=== PATIENT | male | born 1980 | race African-American/Black ===

== ENCOUNTER 2017-08-30 15:26 | Inpatient (IN) | payer MEDICARE, MEDICAID ==
[2017-08-30] MEDS ORDERED: Lorazepam 2 MG/ML VIAL ONE ×2 (15:28→18:01)
[2017-08-30 15:52] LABS: #Basophils 0.1 thou/uL (0.0-0.2); #Eosinphils 0.1 thou/uL (0.0-0.7); #Lymphocytes 2.2 thou/uL (1.20-3.40); #Monocytes 0.8 thou/uL (0.11-0.59); #Neutrophils 3.3 thou/uL (1.40-6.50); %Eosinophils 0.9 % (0.0-10.0); %Lymphocytes 34.2 % (21.0-51.0); %Monocytes 12.2 % (0.0-10.0); %Neutrophils 51.7 % (42.0-75.0); Hemoglobin 14.2 g/dL (14.0-18.0); Mean Corpuscular HGB CONC 35.6 g/dL (32.0-36.0); Mean Corpuscular Hemoglobin 32.3 pg (27.0-31.0); Mean Corpuscular Volume 90.9 fL (78.0-98.0); Mean Platelet Volume 6.6 fL (7.4-10.4); Platelet Count 329 thou/uL (130-400); RBC Distribution Width 11.7 % (11.5-14.5); Red Blood Cell (RBC) Count 4.39 mill/uL (4.70-6.10); White Blood Cell (WBC) Count 6.3 thou/uL (4.8-10.8)
[2017-08-30 16:09] LABS: Bilirubin Small (Negative); Blood, Urine Trace (Negative); Clarity CLEAR (Clear); Glucose, Urine (Dipstick) Negative (Negative); Leukocyte Negative (Negative); Nitrite Negative (Negative); Protein, Urine (Dipstick) 30 mg/dL (Neg-Trace); Specific Gravity, Urine 1.034 (1.002-1.036)
[2017-08-30 16:12] LABS: ALT (SGPT) 80 U/L (8-55); AST (SGOT) 109 U/L (5-34); Albumin 3.9 g/dL (3.5-5.0); Alcohol Less than 10 mg/dL (Less than 10); Alkaline Phosphatase 61 U/L (40-150); Anion Gap 15 mmol/L (10-20); BUN (Urea Nitrogen) 22 mg/dL (8.9-20.6); Bilirubin, Total 1.6 mg/dL (0.2-1.2); CK (CPK) 3763 U/L (30-200); Calc. Creatinine Clearance 0 mL/min (70-130); Calcium 9.2 mg/dL (7.8-10.44); Carbon Dioxide 23 mmol/L (22-29); Chloride 108 mmol/L (98-107); Estimated GFR-MDRD 82; Globulin 2.4 g/dL (2.4-3.5); Glucose 75 mg/dL (70-105); Potassium 4.3 mmol/L (3.5-5.1); Protein, Total 6.3 g/dL (6.0-8.3); Sodium 142 mmol/L (136-145)
[2017-08-30 16:16] LABS: Amphetamine Not Detected (NotDetected); Barbiturates Screen Not Detected (NotDetected); Benzodiazepine Screen Not Detected (NotDetected); Cocaine Metabolite Screen Not Detected (NotDetected); Medtox Control Line Valid? VALID (VALID); Medtox Reader # READER 1; Methadone Not Detected (NotDetected); Methamphetamine Not Detected (NotDetected); Opiate Screen Not Detected (NotDetected); Oxycodone Screen Not Detected (NotDetected); Phencyclidine (PCP) Not Detected (NotDetected); THC/Cannabinoid Screen Not Detected (NotDetected); Tricyclic Screen Not Detected (NotDetected)
[2017-08-30 16:17] LABS: Bacteria/HPF None Seen HPF (None Seen); Pathc Cast-AUWi Flag 1.16 (0-2.49); WBC/HPF 0-3 HPF (0-3)
[2017-08-30 16:18] LABS: Acetaminophen Less than 6.0 mcg/mL (10.0-30.0); Alcohol Less than 10 mg/dL (Less than 10); Lipase 26 U/L (8-78); Salicylate Less than 8.0 mg/dL (15.0-30.0); Troponin I Less than 0.010 ng/mL (< 0.028)
--- NOTE | 2017-08-30 16:18 | RAD ---
1 VIEW CHEST: Date: 08/30/17 HISTORY: Found [place] train tracks. Told EMS he was bit by a snake and a possum. Possible K2 user. Mental health i ssues. COMPARISON: None. FINDINGS: Portable 1 view chest obtained. Normal cardiac silhouette. Lungs and pleural spaces are clear. No con solidation or masses. No pneumothorax on this presumed supine projection. No osseous abnormalities. IMPRESSION: No acute cardiopulmonary process. POS: [facility]
[2017-08-30 16:24] LABS: CKMB 40.5 ng/mL (0-6.6)
[2017-08-30 16:27] LABS: Hyaline Casts/LPF 0-3 HYALINE CAST LPF (0-3 Hyaline)
[2017-08-30 16:28] LABS: Transitional Epithelial 0-3 HPF (0-3)
--- NOTE | 2017-08-30 16:47 | RAD ---
ONE VIEW CHEST: HISTORY: Status post intubation. COMPARISON: 08/30/2017 FINDINGS: Portable supine chest radiograph demonstrates interval placement of an endotracheal tube just beyond the level of the clavicles. There is a nasogastric tube with limited evaluation of the terminus of t he nasogastric tube. Dedicated abdomen radiograph is recommended. Normal cardiac silhouette. Pulmo nary vessels and hilum are normal. No pneumothorax on this supine projection. IMPRESSION: 1. Endotracheal tube as above. 2. Incomplete evaluation of nasogastric tube. The nasogastric tube is identified to the level of th e distal thoracic esophagus. A single view abdomen radiograph is recommended to better interrogate t he terminus of the nasogastric tube. POS: [facility]
--- NOTE | 2017-08-30 17:10 | CT ---
HEAD CT WITHOUT CONTRAST: HISTORY: Altered mental status. Possible drug abuse. COMPARISON: None. TECHNIQUE: A noncontrast head CT is performed from the skull base to the skull vertex. FINDINGS: No parenchymal hemorrhage. No extraaxial hematoma. No midline shift. The basilar cisterns are vanessa nt. Brain volume is age appropriate. Cortical lawson white matter differential is preserved. The ventricles and sulci are patent and symmetric. The calvarium is intact. Adequate aeration of the sinuses and mastoid air cells. IMPRESSION: No acute intracranial process. POS: [facility]
[2017-08-30 17:11] LABS: Base Excess (BEa) -4.2 mEq/L (-2.0 to +3.0); Hematocrit-ABG 37.1 % (42.0-52.0); Hemoglobin (Hb) 13.2 g/dL (14.0-18.0); O2 Tension (PaO2) 82.1 mmHg (80.0-100.0); pH, Arterial 7.35 (7.35-7.45)
[2017-08-30 17:12] LABS: Analyzer IN Cardio ER; Calcium, Ionized 1.2 mmol/L (1.12-1.30)
[2017-08-30 17:13] LABS: Puncture Site LR
[2017-08-30] MEDS ORDERED: PROPOFOL 20 ML ONE (17:22)
[2017-08-30] MEDS ORDERED: Propofol 500 MG/50 ML VIAL ONE (17:58)
[2017-08-30] MEDS ORDERED: Fentanyl BOLUS 250 ML IVPB PRN ×2 (18:56→19:17)
[2017-08-30] MEDS ORDERED: DISCONTINUE PREVIOUS NARCOTIC PAIN MEDICATIONS AND BENZODIAZEPINES FS SCH (18:56)
[2017-08-30] MEDS ORDERED: Lorazepam 2 MG/ML VIAL SLOW IVP PRN ×2 (18:56→19:17)
[2017-08-30] MEDS ORDERED: Propofol BOLUS 1,000 MG/100 ML VIAL IV PRN ×2 (18:56→19:17)
[2017-08-30] MEDS ORDERED: Ondansetron HCl/PF 4 MG/2 ML Vial IVP PRN ×2 (18:57→19:12)
[2017-08-30] MEDS ORDERED: Ondansetron ODT 4 MG TAB SL PRN (18:57)
[2017-08-30] MEDS ORDERED: Sodium Chloride 0.9% 1,000 ML IV SCH (19:00)
[2017-08-30] MEDS ORDERED: Ventilator Sedation Protocol 1 EACH FS SCH (19:12)
[2017-08-30] MEDS ORDERED: CCU Electrolyte Replacement 1 EACH IVPB SCH (19:12)
[2017-08-30] MEDS ORDERED: Potassium Chloride 40 MEQ in Sodium Chloride 0.9% 250 ML 250 ML IVPB PRN (19:17)
[2017-08-30] MEDS ORDERED: Potassium Phosphate 15 MMOL in Sodium Chloride 0.9% 250 ML 250 ML IV PRN (19:17)
[2017-08-30] MEDS ORDERED: Potassium Chloride 40 MEQ in Premix Bag 1 BAG IVPB PRN (19:17)
[2017-08-30] MEDS ORDERED: Potassium Chloride 20 MEQ TAB PO PRN (19:17)
[2017-08-30] MEDS ORDERED: Potassium Phosphate 9 MMOL in Sodium Chloride 0.9% 100 ML IVPB PRN (19:17)
[2017-08-30] MEDS ORDERED: Magnesium Oxide 400 MG TAB PO PRN ×2 (19:17)
[2017-08-30] MEDS ORDERED: Magnesium 2 GM/NS 0.9% 100 ML 2 GM in Premix Bag 1 BAG IVPB PRN (19:17)
[2017-08-30] MEDS ORDERED: CCU ELECTROLYTE REPLACEMENT PROTOCOL FS PRN (19:17)
[2017-08-30] MEDS ORDERED: Potassium Phosphate 12 MMOL in Sodium Chloride 0.9% 250 ML 250 ML IV PRN (19:17)
--- NOTE | 2017-08-30 19:42 | PDOC.EVN ---
Attending Addendum - Attending Addendum Date/Time: 08/30/17 2539 I personally evaluated the patient and discussed the management with Dr. Alonzo/ Joshua at 1726 08/30/2017 in the emergency room. I agree with the History, Examination, Assessment and Plan documented in resident HX and PE with any addition or exceptions noted below. 37 yo male with history mental illness found down on of side road brought to ER with AMS incoherent speech with acute psychotic episode with agitation unresponsive to Ketamine x 2 Patient was intubated for patients safety. Patient with Rhabdomylosis, exposure unknown length of time concern abuse of drugs not detected in drug screen i.e. bath salts.. Patient on ventilator with be observed in CCU continue vigorous hydration follow CK and RFT admit CK 3765. Will need MHMR evaluation when medically cleared. CT of head noted.
[2017-08-30] MEDS: Sodium Chloride 0.9% 1,000 ML IV SCH (19:56)
[2017-08-30] MEDS: Propofol 1,000 MG/100 ML VIAL IV PRN (19:57)
--- NOTE | 2017-08-30 20:47 | PDOC.FPRHP ---
- History of Present Illness Chief Complaint: Psychosis, Agitation History of Present Illness: Mr Byrd is a 37 year old male who presented to the ED via EMS with acute psychosis. Per EMS, patient was found wandering along a set of train tracks and was talking to himself. Pt told EMS that he was bit by a snake and an opossum. Per ER staff, patient was actively hallucinating on arrival to the ED and became combative. Per ER records, patient has a history of schizoaffective disorder, bipolar disorder and anxiety. ED Course: In the Emergency department, patient received a total of 4 mg Ativan and 300 mg of Ketamine. Patient remained combative/agitated so the decision was made to sedate and intubate him. He was placed in restraints. A OG tube was inserted. He was given 3 L NS. - Allergies/Adverse Reactions Allergies Allergy/AdvReac Type Severity Reaction Status Date / Time No Known Allergies Allergy Verified 08/30/17 23:34 - Home Medications Comments: Unavailabe at this time. - History PMHx: Per chart review: Schizoaffective disorder, Bipolar disorder, Anxiety PSHx: R.Knee surgery FHx: Unknown Social: Unknown - Review of Systems ROS unobtainable: due to mental status - Vital signs BP: 129/97 HR: 84 RR: 18 Tmax: 99 Pox: 99% on Ventilator Wt: 71 kg - Physical Exam Constitutional: other (Sedated and intubated.) HEENT: normocephalic and atraumatic, TM's clear and intact Neck: supple Chest: no-tender to palpation Heart: RRR, normal S1/S2 Lungs: CTAB Abdomen: soft, non-tender, no masses/distention Musculoskeletal: normal structure Skin: no rash/lesions -Skin: No evidence of animal bite or other external trauma. FMR H&P: Results - Labs Result Diagrams: 08/30/17 15:38 08/31/17 04:29 Lab results: WBC 6.3 thou/uL (4.8-10.8) 08/30/17 15:38 Hgb 14.2 g/dL (14.0-18.0) 08/30/17 15:38 Hct 39.9 % (42.0-52.0) L 08/30/17 15:38 MCV 90.9 fL (78.0-98.0) 08/30/17 15:38 Plt Count 329 thou/uL (130-400) 08/30/17 15:38 Neutrophils % 51.7 % (42.0-75.0) 08/30/17 15:38 ABG pH 7.35 (7.35-7.45) 08/30/17 16:43 ABG pCO2 39.0 mmHg (35.0-45.0) 08/30/17 16:43 ABG pO2 82.1 mmHg (80.0-100.0) 08/30/17 16:43 Sodium 142 mmol/L (136-145) 08/30/17 15:38 Potassium 4.3 mmol/L (3.5-5.1) 08/30/17 15:38 Chloride 108 mmol/L (98-107) H 08/30/17 15:38 Carbon Dioxide 23 mmol/L (22-29) 08/30/17 15:38 BUN 22 mg/dL (8.9-20.6) H 08/30/17 15:38 Creatinine 1.10 mg/dL (0.6-1.3) 08/30/17 15:38 Glucose 75 mg/dL (70-105) 08/30/17 15:38 Calcium 9.2 mg/dL (7.8-10.44) 08/30/17 15:38 Total Bilirubin 1.6 mg/dL (0.2-1.2) H 08/30/17 15:38 AST 109 U/L (5-34) H 08/30/17 15:38 ALT 80 U/L (8-55) H 08/30/17 15:38 Alkaline Phosphatase 61 U/L (40-150) 08/30/17 15:38 Ammonia 44 umol/L (18-72) 08/30/17 15:52 Creatine Kinase 3763 U/L (30-200) H 08/30/17 15:38 CK-MB (CK-2) 40.5 ng/mL (0-6.6) H* 08/30/17 15:38 Serum Total Protein 6.3 g/dL (6.0-8.3) 08/30/17 15:38 Albumin 3.9 g/dL (3.5-5.0) 08/30/17 15:38 Lipase 26 U/L (8-78) 08/30/17 15:38 Urine Ketones 40 mg/dL (Negative) H 08/30/17 15:44 Urine Blood Trace (Negative) H 08/30/17 15:44 Urine Nitrite Negative (Negative) 08/30/17 15:44 Ur Leukocyte Esterase Negative (Negative) 08/30/17 15:44 Urine RBC 11-20 HPF (0-3) H 08/30/17 15:44 Urine WBC 0-3 HPF (0-3) 08/30/17 15:44 Ur Squamous Epith Cells 4-6 HPF (0-3) H 08/30/17 15:44 Urine Bacteria None Seen HPF (None Seen) 08/30/17 15:44 - Radiology Interpretation CT scan - head Status: report reviewed by me (No acute intracranial abnormality) FMR H&P: A/P - Problem List (1) Acute psychosis Current Visit: Yes Status: Acute Code(s): F23 - BRIEF PSYCHOTIC DISORDER Assessment and Plan: Etiology possibly related to previous psychiatric diagnoses, vs. metabolic, vs. infectious vs. endocrine UDS negative, however may be related to K2 use or bath salts. Patient sedated and intubated. Likely to be extubated in AM. MHMR consult when medically stable. (2) Rhabdomyolysis Current Visit: Yes Status: Acute Code(s): M62.82 - RHABDOMYOLYSIS Qualifiers: Encounter type: initial encounter Assessment and Plan: -s/p 3 L fluids. - maintenance fluids ordered. - will re-check CK in AM (3) Elevated transaminase level Current Visit: Yes Status: Acute Code(s): R74.0 - NONSPEC ELEV OF LEVELS OF TRANSAMNS & LACTIC ACID DEHYDRGNSE Assessment and Plan: - Likely related to rhabdomyolysis. - We will also obtain hepatitis studies. - Repeat CMP in am. (4) Schizoaffective disorder Current Visit: Yes Status: Acute Code(s): F25.9 - SCHIZOAFFECTIVE DISORDER, UNSPECIFIED Assessment and Plan: - Per chart review. - Unsure of home medications. - MHMR consult when medically stable. (5) Bipolar disorder Current Visit: Yes Status: Acute Code(s): F31.9 - BIPOLAR DISORDER, UNSPECIFIED Assessment and Plan: Same as above. Attending Addendum - Attending Addendum Date/Time: 08/31/17 4427 I personally evaluated the patient and discussed the management with Dr. Alonzo/ Joshua I agree with the History, Examination, Assessment and Plan documented above with any addition or exceptions noted below.
[2017-08-30 23:05] LABS: HBSAg Index 0.21 S/CO (0-0.99); Hep B Core Total Ab Non-Reactive (NonReactive); Hep B Core Total Index 0.14 S/CO (0-0.79); Hep B Surf Ag Non-Reactive S/CO (NonReactive); Hep C IgG Ab Non-Reactive (NonReactive); Hep C Index 0.06 S/CO (0-0.79)
--- NOTE | 2017-08-30 23:23 | RAD ---
ONE VIEW ABDOMEN: HISTORY: Nasogastric tube placement. COMPARISON: 08/30/2017 FINDINGS: NG tube appears to be within the distal thoracic esophagus. Advancement is recommended. There are a few air-filled loops of nonspecific small bowel in the left hemiabdomen. Nonspecific calcification in the epigastric region. The patient may have remote bouts of pancreatiti s. IMPRESSION: Nasogastric tube as above. POS: [facility]
[2017-08-31 01:21] LABS: HBSAB Concentration 35.47 mIU/mL; Hep B Surf AB R (NonReactive)
[2017-08-31] MEDS: Propofol 1,000 MG/100 ML VIAL IV PRN ×3 (03:34→18:53)
[2017-08-31] MEDS: Sodium Chloride 0.9% 1,000 ML IV SCH (03:34)
[2017-08-31 05:17] LABS: ALT (SGPT) 58 U/L (8-55); AST (SGOT) 69 U/L (5-34); Albumin 3.2 g/dL (3.5-5.0); Alkaline Phosphatase 54 U/L (40-150); Anion Gap 12 mmol/L (10-20); BUN (Urea Nitrogen) 18 mg/dL (8.9-20.6); Bilirubin, Total 0.9 mg/dL (0.2-1.2); Calc. Creatinine Clearance 114 mL/min (70-130); Calcium 7.9 mg/dL (7.8-10.44); Carbon Dioxide 20 mmol/L (22-29); Chloride 111 mmol/L (98-107); Estimated GFR-MDRD Greater than 90; Globulin 2.2 g/dL (2.4-3.5); Glucose 64 mg/dL (70-105); Potassium 3.7 mmol/L (3.5-5.1); Protein, Total 5.4 g/dL (6.0-8.3); Sodium 139 mmol/L (136-145)
[2017-08-31 05:38] LABS: CK (CPK) 2372 U/L (30-200)
--- NOTE | 2017-08-31 06:06 | PDOC.FM ---
- Subjective Subjective: 37 yo male seen this AM. Patient is intubated and sedated. Per nurse, patient becomes agitated whenever attempts to wean and wake up. Patient continues to be sedated. No other history available. - Objective Vital Signs & Weight: Vital Signs (12 hours) Temp Pulse Resp BP BP Pulse Ox 08/31/17 04:00 98.3 F 16 08/31/17 03:51 78 115/80 08/31/17 02:00 16 08/31/17 00:00 97.8 F 16 08/30/17 23:28 74 08/30/17 22:00 16 08/30/17 20:00 98.1 F 75 16 100 08/30/17 19:12 16 08/30/17 19:00 98.1 F 08/30/17 18:55 98.1 F 75 16 110/67 100 08/30/17 18:54 83 110/67 Weight Weight 70.7 kg Most Recent Monitor Data Heart Rate from ECG 74 NIBP 98/51 NIBP BP-Mean 67 Respiration from ECG 16 SpO2 100 I&O: 08/29/17 08/30/17 08/31/17 06:59 06:59 06:59 Output Total 600 Balance -600 Result Diagrams: 08/30/17 15:38 08/31/17 04:29 <Ron Mendez - Last Filed: 08/31/17 08:35> - Objective Vital Signs & Weight: Vital Signs (12 hours) Temp Pulse Resp BP Pulse Ox 08/31/17 12:00 99.2 F 13 08/31/17 11:30 80 105/60 08/31/17 10:00 16 08/31/17 08:00 99.4 F 80 16 99 08/31/17 06:09 75 103/56 L 08/31/17 06:00 16 08/31/17 04:00 98.3 F 16 08/31/17 03:51 78 115/80 08/31/17 02:00 16 Weight Weight 70.7 kg Most Recent Monitor Data Heart Rate from ECG 81 NIBP 120/63 NIBP BP-Mean 91 Respiration from ECG 15 SpO2 100 I&O: 08/30/17 08/31/17 09/01/17 06:59 06:59 06:59 Intake Total 1374 Output Total 935 300 Balance 439 -300 Result Diagrams: 08/30/17 15:38 08/31/17 04:29 <PrinceCristal machado - Last Filed: 08/31/17 13:14> Phys Exam - Physical Examination HEENT: moist MMs Neck: no nodes Respiratory: no wheezing, clear to auscultation bilateral Cardiovascular: RRR, no significant murmur Gastrointestinal: soft, non-tender, no distention, positive bowel sounds Musculoskeletal: no edema, pulses present Sedated and intubated Deviation from normal: sedated and intubated Skin: no rash <Ron Mendez - Last Filed: 08/31/17 08:35> Dx/Plan (1) Acute psychosis Code(s): F23 - BRIEF PSYCHOTIC DISORDER Status: Acute (2) Bipolar disorder Code(s): F31.9 - BIPOLAR DISORDER, UNSPECIFIED Status: Acute (3) Elevated transaminase level Code(s): R74.0 - NONSPEC ELEV OF LEVELS OF TRANSAMNS & LACTIC ACID DEHYDRGNSE Status: Acute (4) Rhabdomyolysis Code(s): M62.82 - RHABDOMYOLYSIS Status: Acute QualifierTitle: Encounter type: initial encounter (5) Schizoaffective disorder Code(s): F25.9 - SCHIZOAFFECTIVE DISORDER, UNSPECIFIED Status: Acute - Plan Plan: (1) Acute psychosis - Etiology possibly related to previous psychiatric diagnoses, vs. metabolic, vs. infectious vs. endocrine - UDS negative, however may be related to K2 use or bath salts. - Patient sedated and intubated. Likely to be extubated in AM. Will defer to Pulmonology recs. - MHMR consult when medically stable. (2) Rhabdomyolysis - s/p 3 L fluids. - Continue IVF - repeat CK 2372 down from 3763 (3) Elevated transaminase level - Likely related to rhabdomyolysis. - Hepatic studies negative - Decreased this AM - Will trend (4) Schizoaffective disorder - Per chart review. - Unsure of home medications. - MHMR consult when medically stable. (5) Bipolar disorder Same as above. Disposition: Stable, once agitation is reduced will attempt to wean off ventilator and sedation. MHMR consult will be placed when medically clear. <Ron Mendez - Last Filed: 08/31/17 08:35> Attending Addendum - Attending Addendum Date/Time: 08/31/17 1313 I personally evaluated the patient and discussed the management with Dr. Mendez. I agree with the History, Examination, Assessment and Plan documented above with any addition or exceptions noted below. The patient is intubated but awake. Anticipate extubation soon per pulmonology. CK is improving. Will repeat CK this afternoon. Continue IV fluids. Pt will likely need [facility] consult. <Cristal Morrison - Last Filed: 08/31/17 13:14>
[2017-08-31 06:40] LABS: CO2 Tension 30.7 mmHg (35.0-45.0); pH, Arterial 7.37 (7.35-7.45)
[2017-08-31 06:41] LABS: ALV-art Gradient 110.925 (0-20); Actual Bicarbonate (HCO3a) 17.3 mEq/L (22-28); Base Excess (BEa) -6.8 mEq/L (-2.0 to +3.0); Calcium, Ionized 1.2 mmol/L (1.12-1.30); Hemoglobin (Hb) 12.9 g/dL (14.0-18.0); O2 Tension (PaO2) 135.9 mmHg (80.0-100.0); Puncture Site RRA
[2017-08-31] MEDS: fentaNYL Citrate/PF 2,000 MCG in Sodium Chloride 0.9% 60 ML IV SCH (09:00)
[2017-08-31] MEDS: Enoxaparin Sodium 40 MG/0.4 ML SYRINGE SC SCH (09:32)
[2017-08-31] MEDS: Lactated Ringer's 1,000 ML IV SCH ×2 (12:49→21:02)
[2017-08-31] MEDS: Haloperidol Lactate 5 MG/ML VIAL IM SCH ×2 (12:49→18:09)
--- NOTE | 2017-08-31 13:16 | CON ---
DATE OF CONSULTATION: 08/31/2017 HISTORY OF PRESENT ILLNESS: Mr. Byrd is a 37-year-old, who was intubated for psychosis. He was a pparently found on some train tracks. He has a history of schizoaffective disorder, bipolar disorder, and anxiety, reportedly. He was intubated. I am assuming for control of his psychotic behavior. I was consulted because of h is presence in the Critical Care Unit. The emergency department record says he was unresponsive, but then says he was awake and speaking incoherently. His triage time was in the afternoon. He was intubated sometime after 1644 hours. Apparently, according to the records, he did not respond to ketamine. Toxicology screen was negative. He has never been hospitalized here before. PAST MEDICAL HISTORY: Otherwise unknown. FAMILY HISTORY: Unknown. SOCIAL HISTORY: Unknown. PHYSICAL EXAMINATION: VITAL SIGNS: His heart rate is 80, blood pressure 105/60, respiratory rate 16. There is no family i n the room. Oximetry is 98. HEENT: Pupils react. There are equal. Sclerae is anicteric. NECK: Supple. LUNGS: Clear. HEART: Regular rhythm. S1 and S2 are normal. ABDOMEN: Soft and nontender. EXTREMITIES: Without clubbing, cyanosis, or edema. LABORATORY DATA: White count 6.3, hemoglobin 14.2, platelets 329. Sodium 139, potassium 3.7, chlori de 111, bicarbonate 20, BUN 18, creatinine 0.87, glucose 64. CPK was 3763, 2372 today. Liver enzyme s mildly elevated were improving. Albumin was 3.2. IMPRESSION: Drug intoxication (?K2). I have seen this before with K2. The other possibility is seth t this actually was a psychotic break. I will start him on Haldol IM. Continue to mechanically vent ilate him and follow with the physicians here caring for him. His lab work has been reviewed. His blood gases have been reviewed. His pH 7.37, CO2 of 30, pO2 of 135. I would not wean him until he is stabilized approximately 24-48 hours. Critical care time was 30 minutes.
[2017-08-31] MEDS ORDERED: Dextrose 5% in Water 1,000 ML IV PRN (20:55)
[2017-08-31] MEDS: Dextrose 50% Abboject 50 ML SYRINGE IVP PRN (21:01)
[2017-09-01] MEDS: Propofol 1,000 MG/100 ML VIAL IV PRN (01:26)
[2017-09-01] MEDS: Dextrose 50% Abboject 50 ML SYRINGE IVP PRN (03:41)
[2017-09-01] MEDS ORDERED: Dextrose 5 %-0.45 % NaCl 1,000 ML IV SCH (04:45)
[2017-09-01] MEDS: fentaNYL Citrate/PF 2,000 MCG in Sodium Chloride 0.9% 60 ML IV SCH (05:02)
[2017-09-01 05:26] LABS: ALT (SGPT) 51 U/L (8-55); AST (SGOT) 60 U/L (5-34); Alkaline Phosphatase 52 U/L (40-150); Anion Gap 14 mmol/L (10-20); BUN (Urea Nitrogen) 9 mg/dL (8.9-20.6); Bilirubin, Total 0.6 mg/dL (0.2-1.2); Calc. Creatinine Clearance 133 mL/min (70-130); Calcium 8.2 mg/dL (7.8-10.44); Carbon Dioxide 20 mmol/L (22-29); Chloride 108 mmol/L (98-107); Estimated GFR-MDRD Greater than 90; Globulin 2.5 g/dL (2.4-3.5); Glucose 124 mg/dL (70-105); Potassium 3.7 mmol/L (3.5-5.1); Protein, Total 5.5 g/dL (6.0-8.3); Sodium 138 mmol/L (136-145)
--- NOTE | 2017-09-01 06:09 | PDOC.FM ---
- Subjective Subjective: Patient self extubated this AM. Patient was on full sedation at the time. Since that time he complains of only needing to use the bathroom and that he is hungry. He states that he has a hoarse voice and that he has a cough because of the tube. Otherwise he is A &O x4 and is cooperative with the interview. No other complaints today. - Objective Vital Signs & Weight: Vital Signs (12 hours) Temp Pulse Resp BP Pulse Ox 09/01/17 04:00 99 F 17 09/01/17 02:51 73 114/62 09/01/17 02:00 14 09/01/17 00:00 99 F 17 08/31/17 22:41 77 99/67 08/31/17 22:00 14 08/31/17 20:00 99.7 F H 70 14 100 08/31/17 19:12 100 08/31/17 19:00 99.7 F H 08/31/17 18:27 79 Weight Admit Weight 70.2 kg Weight 73.9 kg Most Recent Monitor Data Heart Rate from ECG 76 NIBP 124/68 NIBP BP-Mean 78 Respiration from ECG 15 SpO2 95 I&O: 08/30/17 08/31/17 09/01/17 06:59 06:59 06:59 Intake Total 1374 1840.9 Output Total 935 1250 Balance 439 590.9 Result Diagrams: 08/30/17 15:38 09/01/17 04:23 <Ron Mendez - Last Filed: 09/01/17 11:06> - Objective Vital Signs & Weight: Vital Signs (12 hours) Temp Pulse Resp BP Pulse Ox 09/01/17 16:00 99.3 F 81 18 143/88 H 93 L 09/01/17 12:22 98.0 F 79 18 09/01/17 08:00 98.0 F 79 18 97 09/01/17 07:00 98.0 F 09/01/17 06:30 96 Weight Admit Weight 70.2 kg Weight 73.9 kg Most Recent Monitor Data Heart Rate from ECG 80 NIBP 125/77 NIBP BP-Mean 87 Respiration from ECG 15 SpO2 100 I&O: 08/31/17 09/01/17 09/02/17 06:59 06:59 06:59 Intake Total 1374 1840.9 3745 Output Total 935 1300 3350 Balance 439 540.9 395 Result Diagrams: 08/30/17 15:38 09/01/17 04:23 <Cristal Morrison - Last Filed: 09/01/17 17:53> Phys Exam - Physical Examination HEENT: moist MMs Neck: no nodes Respiratory: no wheezing, clear to auscultation bilateral Cardiovascular: RRR, no significant murmur Gastrointestinal: soft, non-tender, no distention, positive bowel sounds Musculoskeletal: no edema, pulses present Neurological: non-focal, normal sensation, moves all 4 limbs Lymphatic: no nodes Psychiatric: normal affect, A&O x 3 Skin: no rash <Ron Mendez - Last Filed: 09/01/17 11:06> Dx/Plan (1) Acute psychosis Code(s): F23 - BRIEF PSYCHOTIC DISORDER Status: Acute (2) Bipolar disorder Code(s): F31.9 - BIPOLAR DISORDER, UNSPECIFIED Status: Acute (3) Rhabdomyolysis Code(s): M62.82 - RHABDOMYOLYSIS Status: Acute QualifierTitle: Encounter type: initial encounter (4) Elevated transaminase level Code(s): R74.0 - NONSPEC ELEV OF LEVELS OF TRANSAMNS & LACTIC ACID DEHYDRGNSE Status: Acute (5) Schizoaffective disorder Code(s): F25.9 - SCHIZOAFFECTIVE DISORDER, UNSPECIFIED Status: Acute - Plan Plan: (1) Acute psychosis - Etiology possibly related to previous psychiatric diagnoses, vs. metabolic, vs. infectious vs. endocrine - UDS negative, however may be related to K2 use or bath salts. - Pulmonology started IM Haldol - Self extubated 09/01. - MHMR consult when medically stable. (2) Rhabdomyolysis - Continue IVF - repeat CK 1839 (3) Elevated transaminase level - Likely related to rhabdomyolysis. - Hepatic studies negative - Decreased again this AM - Will trend (4) Schizoaffective disorder - Per chart review. - Unsure of home medications. - MHMR consult when medically stable. (5) Bipolar disorder - Same as above. - [place] level below detectable limit. - Will likely benefit from MHMR placement. Disposition: Stable, will monitor for signs and symptoms of acute psychosis and trend labs. MHMR consult will be placed when medically clear. <Ron Mendez - Last Filed: 09/01/17 11:06> Attending Addendum - Attending Addendum Date/Time: 09/01/17 1156 I personally evaluated the patient and discussed the management with Dr. Mendez. I agree with the History, Examination, Assessment and Plan documented above with any addition or exceptions noted below. Patient will be transferred out of the ICU. Pt self extubated this morning and is doing well. will continue IV fluids. CK has been decreasing. Repeat level at noon. May need sitter. [facility] consult. <Cristal Morrison - Last Filed: 09/01/17 17:53>
[2017-09-01] MEDS: Haloperidol Lactate 5 MG/ML VIAL IM SCH ×5 (07:44→20:30)
[2017-09-01 08:33] VITALS: BMI 23.3
[2017-09-01] MEDS: Enoxaparin Sodium 40 MG/0.4 ML SYRINGE SC SCH (10:22)
[2017-09-01] MEDS ORDERED: Lactated Ringer's 1,000 ML IV SCH ×2 (10:30→10:45)
[2017-09-01] MEDS: Lactated Ringer's 1,000 ML IV SCH ×3 (10:51→21:41)
--- NOTE | 2017-09-01 13:00 | PRG ---
DATE OF SERVICE: 09/01/2017 Mr. Byrd self-extubated this morning. When I evaluated him, he was in no distress. PHYSICAL EXAMINATION: VITAL SIGNS: Afebrile, heart rate is 70s, respiratory rate 18, oximetry was 100% on room air. LUNGS : Lungs are Clear. HEART: Regular rhythm. ABDOMEN: Abdomen is soft. When I asked him what happened, he told me he ran out of his medicine that he got from the hospital on [facility] (I suspect this is a psychiatric hospital and was not doing well. He requested that he be allowed to go back to the [facility] to get back on his medicine. IMPRESSION: Psychotic break. He reportedly is schizoaffective, but I wonder if he is not schizophre cherise. He also is reported to be bipolar. Without old records it is impossible to sort through this. I do think it would be appropriate to get MR involved. We will sign off when he transfers out of the Critical Care Unit.
[2017-09-01] MEDS ORDERED: diphenhydrAMINE 25 MG CAP PO SCH (21:45)
[2017-09-02] MEDS: Haloperidol Lactate 5 MG/ML VIAL IM SCH ×2 (01:58→06:53)
[2017-09-02] MEDS: Lactated Ringer's 1,000 ML IV SCH ×3 (02:53→15:09)
[2017-09-02 05:59] LABS: ALT (SGPT) 48 U/L (8-55); AST (SGOT) 59 U/L (5-34); Alkaline Phosphatase 50 U/L (40-150); Anion Gap 8 mmol/L (10-20); BUN (Urea Nitrogen) 5 mg/dL (8.9-20.6); Bilirubin, Total 0.7 mg/dL (0.2-1.2); Calc. Creatinine Clearance 141 mL/min (70-130); Calcium 8.2 mg/dL (7.8-10.44); Carbon Dioxide 28 mmol/L (22-29); Chloride 107 mmol/L (98-107); Estimated GFR-MDRD Greater than 90; Globulin 2.3 g/dL (2.4-3.5); Glucose 93 mg/dL (70-105); Potassium 3.3 mmol/L (3.5-5.1); Protein, Total 5.3 g/dL (6.0-8.3); Sodium 140 mmol/L (136-145)
[2017-09-02] MEDS ORDERED: Potassium Chloride 20 MEQ TAB PO SCH (06:30)
--- NOTE | 2017-09-02 06:30 | PDOC.FM ---
- Subjective Subjective: 37 yo male seen this AM. No acute events overnight. Nurses report he has been cooperative and non combative. Patient states his mood is OK. Patient states that he feels like he would benefit from inpatient psychiatric admission. Patient states that he has had no muscle aches, abdominal pain, chest pain, n/v/ d. He does note he has been urinating quite a bit. No other complaints today. - Objective Vital Signs & Weight: Vital Signs (12 hours) Temp Pulse Resp BP Pulse Ox 09/02/17 05:03 99.0 F 82 18 135/86 09/02/17 00:16 98.5 F 80 18 131/77 09/01/17 20:30 99.2 F 95 18 96 09/01/17 19:12 99.2 F 95 18 137/75 96 Weight Admit Weight 70.2 kg Weight 73.9 kg Most Recent Monitor Data Heart Rate from ECG 80 NIBP 125/77 NIBP BP-Mean 87 Respiration from ECG 15 SpO2 100 I&O: 08/31/17 09/01/17 09/02/17 06:59 06:59 06:59 Intake Total 1374 1840.9 3745 Output Total 935 1300 3350 Balance 439 540.9 395 Result Diagrams: 08/30/17 15:38 09/02/17 04:16 <Ron Mendez - Last Filed: 09/02/17 07:17> - Objective Vital Signs & Weight: Vital Signs (12 hours) Temp Pulse Resp BP Pulse Ox 09/02/17 08:00 99.0 F 79 20 133/85 98 09/02/17 05:03 99.0 F 82 18 135/86 Weight Admit Weight 70.2 kg Weight 73.9 kg Most Recent Monitor Data Heart Rate from ECG 80 NIBP 125/77 NIBP BP-Mean 87 Respiration from ECG 15 SpO2 100 I&O: 09/01/17 09/02/17 09/03/17 06:59 06:59 06:59 Intake Total 1840.9 3745 Output Total 1300 3350 Balance 540.9 395 Result Diagrams: 08/30/17 15:38 09/02/17 04:16 <Cristal Morrison - Last Filed: 09/02/17 16:02> Phys Exam - Physical Examination Constitutional: NAD HEENT: PERRLA, moist MMs Respiratory: no wheezing, clear to auscultation bilateral Cardiovascular: RRR, no significant murmur Gastrointestinal: soft, non-tender, no distention, positive bowel sounds Musculoskeletal: no edema, pulses present Neurological: non-focal, normal sensation, moves all 4 limbs Lymphatic: no nodes Psychiatric: normal affect, A&O x 3 Skin: no rash <Ron Mendez - Last Filed: 09/02/17 07:17> Dx/Plan (1) Acute psychosis Code(s): F23 - BRIEF PSYCHOTIC DISORDER Status: Acute (2) Bipolar disorder Code(s): F31.9 - BIPOLAR DISORDER, UNSPECIFIED Status: Acute (3) Rhabdomyolysis Code(s): M62.82 - RHABDOMYOLYSIS Status: Acute QualifierTitle: Encounter type: initial encounter (4) Elevated transaminase level Code(s): R74.0 - NONSPEC ELEV OF LEVELS OF TRANSAMNS & LACTIC ACID DEHYDRGNSE Status: Acute (5) Schizoaffective disorder Code(s): F25.9 - SCHIZOAFFECTIVE DISORDER, UNSPECIFIED Status: Acute (6) Hypokalemia Code(s): E87.6 - HYPOKALEMIA Status: Acute - Plan Plan: (1) Acute psychosis - Etiology possibly related to previous psychiatric diagnoses, vs. metabolic, vs. infectious vs. endocrine - UDS negative, however may be related to K2 use or bath salts. - Pulmonology started IM Haldol - Self extubated 09/01. - MHMR consult pending (2) Rhabdomyolysis - Continue IVF - repeat CK 1974 this AM - repeat this afternoon (3) Elevated transaminase level - Likely related to rhabdomyolysis. - Hepatic studies negative - Resolving (4) Schizoaffective disorder - Per chart review. - Unsure of home medications. - MHMR consult pending (5) Bipolar disorder - Same as above. - [place] level below detectable limit. - Will likely benefit from MHMR placement. (6) Hypokalemia - 3.3 this AM - Will replenish Disposition: Stable, will monitor for signs and symptoms of acute psychosis and trend labs. MHMR consult will be placed when medically clear. <Ron Mendez - Last Filed: 09/02/17 07:17> Attending Addendum - Attending Addendum Date/Time: 09/02/17 1601 I personally evaluated the patient and discussed the management with Dr. Mendez. I agree with the History, Examination, Assessment and Plan documented above with any addition or exceptions noted below. The patient has expressed desire to go to inpatient psych facility. CK down to 1800. Will continue IV fluids and consult MHMR. Patient has no renal abnormalities and is medically cleared. <Cristal Morrison - Last Filed: 09/02/17 16:02>
[2017-09-02] MEDS ORDERED: Haloperidol Lactate 5 MG/ML VIAL IM PRN (07:19)
[2017-09-02] MEDS ORDERED: Lactated Ringer's 1,000 ML IV SCH (07:45)
[2017-09-02] MEDS: Enoxaparin Sodium 40 MG/0.4 ML SYRINGE SC SCH (08:09)
[2017-09-02] MEDS ORDERED: Loratadine 10 MG TAB PO PRN (17:04)
[2017-09-02 19:34] VITALS: BP 149/90; TEMP 98.9
--- NOTE | 2017-09-03 12:37 | DIS-2 ---
DATE OF ADMISSION: 08/30/2017 DATE OF DISCHARGE: 09/03/2017 RESIDENT: Dr. Ron Mendez ADMITTING ATTENDING: Dr. Sha Pérez DISCHARGE ATTENDING: Dr. Cristal Morrison CONSULTATIONS: Pulmonology, [facility], Speech evaluation. PROCEDURES: 1. On 08/30/2017 - The patient underwent a brain CT that showed no acute intracranial process. 2. On 08/30/2017 - The patient underwent a chest x-ray that showed no acute cardiopulmonary process. 3. 08/30/2017 - The patient underwent a chest x-ray that showed endotracheal tube is above incomplet e evaluation of nasogastric tube, nasogastric tube was identified to the level of the distal thoracic esophagus. Single view abdomen radiograph recommended to better interrogate the terminus of the mary ogastric tube. 4. 08/30/2017 - Abdominal x-ray was obtained that shows nasogastric tube in the distal thoracic esop hagus, advancement is recommended. DISCHARGE DIAGNOSES: 1. Acute psychosis. 2. Bipolar disorder. 3. Rhabdomyolysis. 4. Elevated transaminase. 5. Schizoaffective disorder. 6. Hypokalemia. DISCHARGE MEDICATIONS: None known. DISCONTINUED MEDICATIONS: None known. HISTORY OF PRESENT ILLNESS/HOSPITAL COURSE: The patient is a 37-year-old male who presented to the [facility] via EMS with acute psychosis. Per EMS, the patient [place] train tracks and was talking to himself. The patient told EMS that he was bit by a snake and/or possum. By ER staff, the patient was actively hallucinating on arrival to the ED and became combative. The patient then received 4 mg of Ativan and 300 mg of ketamine. The patient remained combative and agitated. Then t he decision was made to sedate and intubate the patient. He was placed in restraints and was transfe rred to the ICU. During the hospitalization, the patient had some notable lab values of a CK level on admission of 376 3, but slowly down trended to 1868 on the day before discharge. The patient had an unremarkable urin alysis and UDS. He also had negative hepatitis B and C serologies. The patient was intubated in the ICU. Dr. Cosby with Pulmonology recommended sedating the patient for 24-48 hours to ensure that pos sibility of K2 intoxication subsided in that time. The patient, however, then extubated himself on 0 09/01/2017, but had no complications following that. The patient was then transferred to the floor. [place] [facility] residents recommended having a sitter for the patient; however, the [facility] sor and charge nurse determined that the patient was not suicidal and that a sitter was not needed. The patient on 09/03/2017, around 3 in the morning, the patient went down to the elevator accompanied by [employer] and bolted out the door. The patient left, was found at [facility] by the [facility] t. The patient was found to not be suicidal and involuntary [facility] admission was not required at this time and was determined to be leaving AMA. Again, this patient left against medical advice. DISPOSITION: Stable. DISCHARGE INSTRUCTIONS: The patient left AMA without any further instructions.
== END 2017-09-03 04:21 | disposition left against medical advice (07) | DRG 885 ==
LOC: ERS 15:26 → EDBD 15:26 → CCU 18:44 → T4-A 09-01 12:00
PROVIDERS: ADMIT Family Medicine; ATTEND Family Medicine
PROC: 0BH17EZ Insertion of Endotracheal Airway into Trachea, Via Natural or Artificial Opening (ICD-10-PCS; principal; 2017-08-30)
PROC: 5A1945Z Respiratory Ventilation, 24-96 Consecutive Hours (ICD-10-PCS; 2017-08-30)
DX: F23 Brief psychotic disorder (principal); M62.82 Rhabdomyolysis; F31.9 Bipolar disorder, unspecified; F25.9 Schizoaffective disorder, unspecified; E87.6 Hypokalemia; Z78.1 Physical restraint status
CPT/HCPCS: 31500; 36415; 36416; 51710; 70450; 71045; 74018; 80053; 80178; 80306; 80307; 81003; 81015; 82140; 82550; 82553; 82805; 83690; 84443; 84484; 85025; 86704; 86706; 86803; 87040; 87340; 93005; 94002; 94003; 96361; 96365; 96366; 96368; 96375; 96376; A4216; G8996-GN-CH; G8997-GN-CH; J1610; J1630; J1650; J2060; J2704; J3010; J7050

== ENCOUNTER 2017-09-07 23:19 | Emergency (ER) | payer MEDICARE, MEDICAID | END 2017-09-08 00:10 | LOC: ERS 23:19 | DX: F16.10 Hallucinogen abuse, uncomplicated (principal); F41.9 Anxiety disorder, unspecified; F31.9 Bipolar disorder, unspecified | CPT/HCPCS: 99283 ==